=== PATIENT | male | born 1990 | race Caucasian/White ===

== ENCOUNTER 2021-03-18 14:12 | Emergency (ER) | payer MEDICAID ==
[~2021-03-18] VITALS: Ht 180.3 cm; Wt 83.9 kg
[2021-03-18 15:24] VITALS: BP_SYST 136
--- NOTE | 2021-03-18 15:29 | NUR ---
AMBULATED TO BED 6
--- NOTE | 2021-03-18 15:35 | NUR ---
PT CAME TO ER C/O BILATERAL EYE REDNESS AND PAIN. 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 PT DENIES VISUAL CHANGES. PT IS AMBULATORY, AAOX4, V/S STABLE
--- NOTE | 2021-03-18 15:41 | NUR ---
ER DR. KRISHNAN AT THE BEDSIDE EXAMINING PT
[2021-03-18 15:50] VITALS: BP_SYST 136
--- NOTE | 2021-03-18 15:50 | NUR ---
PT ELOPED FROM ER
== END 2021-03-18 15:50 | disposition left against medical advice (07) ==
LOC: SED 14:12
DX: H10.9 Unspecified conjunctivitis (principal)
CPT/HCPCS: 99281